=== PATIENT | female | born 1980 | race Caucasian/White ===

== ENCOUNTER → 2024-02-24 | Outpatient (CLI) | payer BC ==
[2024-02-24 07:13] LABS: Basophils # (auto) 0.1 10 ^3/uL (0-0.2); Basophils % (auto) 0.8 % (0.0-2.0); Eosinophils # (auto) 0.4 10 ^3/uL (0-0.8); Eosinophils % (auto) 4.9 % (0.0-7.0); Hematocrit 44.7 % (36.0-46.0); Hemoglobin 15.2 g/dL (12.2-16.2); Lymphocytes # (auto) 2.9 10 ^3/uL (0.4-5.4); Lymphocytes % (auto) 37.1 % (10.0-50.0); Mean Corpuscular Hemoglobin 31.9 pg (28.0-32.0); Mean Corpuscular Hgb Conc. 34.1 g/dL (32.0-36.0); Mean Corpuscular Volume 93.5 fL (80.0-100.0); Monocytes # (auto) 0.5 10 ^3/uL (0-1.3); Monocytes % (auto) 6.8 % (0.0-12.0); Neutrophils # (auto) 3.9 10 ^3/uL (1.6-8.6); Neutrophils % (auto) 50.4 % (37.0-80.0); Platelet Count (auto) 279 10^3/uL (140-450); Red Blood Cells 4.78 10^6/uL (4.0-5.20); Red Cell Distribution Width 12.9 % (11.8-14.3); White Blood Cell 7.8 10^3/uL (4.4-10.8)
[2024-02-24 07:15] LABS: Urine Bacteria FEW /hpf (None Seen); Urine Blood Negative /uL (Negative); Urine Clarity Clear (Clear); Urine Color Light-Yellow (Yellow); Urine Protein, UAD Negative (Negative); Urine Specific Gravity 1.011 (1.001-1.035); Urine Urobilinogen Normal (Negative); Urine WBC <1 /hpf (0 - 5)
[2024-02-24 07:49] LABS: Alanine Aminotransferase 33 U/L (7-40); Albumin 4.4 g/dL (3.2-4.8); Alkaline Phosphatase 61 U/L (46-116); Anion Gap 6 (5-15); Aspartate Aminotransferase 24 U/L (13-40); BUN/Creatinine Ratio 13.3 (10.0-20.0); Bilirubin, Total 0.7 mg/dL (0.2-1.0); Blood Urea Nitrogen 11 mg/dL (9-23); Carbon Dioxide 26 mmol/L (20-30); Chloride 106 mmol/L (98-107); Cholesterol 195 mg/dL (< 200); Glucose 84 mg/dL (74-106); HDL Cholesterol 70 mg/dL (40-59); LDL Cholesterol 116 mg/dL (< 100); Potassium 3.9 mmol/L (3.5-5.1); Sodium 138 mmol/L (136-145); Total Protein 7.2 g/dL (5.7-8.2); Triglycerides 78 mg/dL (< 150)
[2024-02-24 10:43] LABS: Ferritin 70.5 ng/mL (10-291)
[2024-02-24 13:51] LABS: % Iron Saturation 31.8 % (15-50)
== END | disposition home or self-care (01) ==
LOC: LAB 06:49
DX: Z12.11 Encounter for screening for malignant neoplasm of colon (principal); E55.9 Vitamin D deficiency, unspecified; Z98.84 Bariatric surgery status
CPT/HCPCS: 36415; 80053; 80061; 81001; 82306; 82607; 82728; 83036; 83540; 83550; 84443; 85025

== ENCOUNTER 2024-09-25 13:39 | Emergency (ER) | payer BC ==
[~2024-09-25] VITALS: Ht 165.1 cm; Wt 99.0 kg
--- NOTE | 2024-09-25 14:06 | ED.PDOC ---
HPI Comments 44 year old female presents to the ED with a chief complaint of palpitations onset 4 days. Patient states she has been experiencing palpitations with shortness of breath for the past 4 days, noticed worsen today. Patient states smart watch advises HR is elevated. PMHx DM, HTN. Denies chest pain, nausea, vomiting, diarrhea, abdominal pain, dizziness, headache, fever, chills. No other symptoms or modifying factors present at this time. Chief Complaint: Palpitations Time Seen by MD: 13:47 Reviewed Notes: Medications, Allergies Allergies: Coded Allergies: NO KNOWN ALLERGIES (Unverified , 09/25/24) Information Source: Patient Mode of Arrival: Ambulatory Severity: Moderate Timing: Days Duration: Since onset Prehospital treatment: None Onset: At Rest Cardiac Risk Factors: HTN, Diabetes PE Risk Factors: None History of: None Associated Signs and Symptoms: Palpitations Past Medical History PAST MEDICAL HISTORY: DM, HTN Surgical History: Denies all surgeries EMBEDDED FIRMWARE ENGINEER History: No Pertinent EMBEDDED FIRMWARE ENGINEER History Family History Family History: Reviewed,noncontributory to illness, No family hx of Cancer, No family hx of DM, No family hx of Heart linda, No family hx of HTN, No family hx ofKidney linda, No family hx of Liver linda, No family hx of Lung linda, No family hx of Stroke Social History Smoker: Non-Smoker Alcohol: Denies ETOH Use Drugs: Denies Drug Use Lives In: Home Constitutional: denies: chills, diaphoresis, fatigue, fever, malaise, sweats, w eakness, others EENTM: denies: blurred vision, double vision, ear bleeding, ear discharge, ear drainage, ear pain, ear ringing, eye pain, eye redness, hearing loss, mouth pain, mouth swelling, nasal discharge, nose bleeding, nose congestion, nose pain, photophobia, tearing, throat pain, throat swelling, voice changes, others Respiratory: reports: shortness of breath; denies: cough, hemoptysis, orthopnea, SOB at rest, SOB with excertion, stridor, wheezing, others Cardiovascular: reports: palpitations; denies: chest pain, dizzy spells, diaphoresis, Dyspnea on exertion, edema, irregular heart beat, left arm pain, lightheadedness, PND, syncope, others Gastrointestinal: denies: abdomen distended, abdominal pain, blood streaked bowels, constipated, diarrhea, dysphagia, difficulty swallowing, hematemesis, melena, nausea, poor appetite, poor fluid intake, rectal bleeding, rectal pain, vomiting, others Genitourinary: denies: abnormal vagina bleeding, burning, dyspareunia, dysuria, flank pain, frequency, hematuria, incontinence, pain, , vagina discharge, urgency, others Neurological: denies: dizziness, fainting, headache, left sided numbness, left sided weakness, numbness, paresthesia, pre-existing deficit, right sided numbness, right sided weakness, seizure, speech problems, tingling, tremors, weakness, others Musculoskeletal: denies: back pain, gout, joint pain, joint swelling, muscle pain, muscle stiffness, neck pain, others Integumetry: denies: bruises, change in color, change in hair/nails, dryness, laceration, lesions, lumps, rash, wounds, others Allergic/Immunocompromised: denies: Difficulty Healing, Frequent Infections, Hives, Itching, others Hematologic/Lymphatic: denies: anemia, blood clots, easy bleeding, easy bruising, swollen glands, others Endocrine: denies: excessive hunger, excessive sweating, excessive thirst, excessive urination, flushing, intolerance to cold, intolerance to heat, unexplained weight gain, unexplained weight loss, others Psychiatric: denies: anxiety, bipolar disorder, depression, hopeless, panic disorder, schizophrenia, sleepless, suicidal, others All Other Systems: Reviewed and Negative Physical Exam General Appearance: Moderate Distress, Normal HEENT: Normal ENT Inspection, Pharynx Normal, TMs Normal Neck: Full Range of Motion, Non-Tender, Normal, Normal Inspection Respiratory: Chest Non-Tender, Lungs Clear, No Accessory Muscle Use, No Respiratory Distress, Normal Breath Sounds Cardiovascular: No Edema, No JVD, No Murmur, No Gallop, Normal Peripheral Pulses, Regular Rate/Rhythm Breast Exam: Deferred Gastrointestinal: No Organomegaly, Non Tender, No Pulsatile Mass, Normal Bowel Sounds, Soft Genitalia: Deferred Pelvic: Deferred Rectal: Deferred Extremities: No calf tenderness, Normal capillary refill, Normal inspection, Normal range of motion, Non-tender, No pedal edema Musculoskeletal : Apperance: Normal Neurologic: Alert, rapid extractor operator II-XII nml as Tested, No Motor Deficits, Normal Affect, Normal Mood, No Sensory Deficits Cerebellar Function: Normal Reflexes: Normal Skin: Dry, Normal Color, Warm Peripheral Pulses: 3+ Radial (R), 3+ Radial (L) Lymphatic: No Adenopathy Was a procedure done? Was a procedure done?: No CP Differential Dx Differential Diagnosis: A-fib, A-Flutter, Angina, Anxiety / Panic Attack, Atrial Dysrhythmia, Electrolyte Disorder X-Ray, Labs, Meds, VS Vital Signs Date Time Temp Pulse Resp B/P (MAP) Pulse Ox O2 Delivery O2 Flow Rate FiO2 09/25/24 15:14 98.6 80 17 128/83 (98) 99 98.6 09/25/24 14:43 77 09/25/24 13:47 102 09/25/24 13:40 98.2 100 18 119/79 (92) 99 98.2 Lab Test 09/25/24 14:46 09/25/24 13:53 Range/Units Troponin I High Sensitivity < 3 L < 3 L </=34 ng/L White Blood Count 10.3 4.4-10.8 10^3/uL Red Blood Count 4.70 4.0-5.20 10^6/uL Hemoglobin 15.2 12.2-16.2 g/dL Hematocrit 43.9 36.0-46.0 % Mean Corpuscular Volume 93.4 80.0-100.0 fL Mean Corpuscular Hemoglobin 32.3 H 28.0-32.0 pg Mean Corpuscular Hemoglobin Concent 34.6 32.0-36.0 g/dL Red Cell Distribution Width 12.7 11.8-14.3 % Platelet Count 304 140-450 10^3/uL Mean Platelet Volume 8.8 6.9-10.8 fL Neutrophils (%) (Auto) 68.7 37.0-80.0 % Lymphocytes (%) (Auto) 24.1 10.0-50.0 % Monocytes (%) (Auto) 5.4 0.0-12.0 % Eosinophils (%) (Auto) 1.1 0.0-7.0 % Basophils (%) (Auto) 0.7 0.0-2.0 % Neutrophils # (Auto) 7.1 1.6-8.6 10 ^3/uL Lymphocytes # (Auto) 2.5 0.4-5.4 10 ^3/uL Monocytes # (Auto) 0.6 0-1.3 10 ^3/uL Eosinophils # (Auto) 0.1 0-0.8 10 ^3/uL Basophils # (Auto) 0.1 0-0.2 10 ^3/uL Nucleated Red Blood Cells 0.0 % Sodium Level 141 136-145 mmol/L Potassium Level 4.0 3.5-5.1 mmol/L Chloride Level 105 98-107 mmol/L Carbon Dioxide Level 28 20-31 mmol/L Anion Gap 8 5-15 Blood Urea Nitrogen 15 9-23 mg/dL Creatinine 0.89 0.550-1.02 mg/dL Glomerular Filtration Rate Calc 81 >90 mL/min BUN/Creatinine Ratio 16.9 10.0-20.0 Serum Glucose 93 74-106 mg/dL Calcium Level 10.3 8.7-10.4 mg/dL Current Medications Medications (Trade) Dose Ordered Sig/Delmi Route Start Time Stop Time Status Last Admin Aspirin 325 mg ONCE ONCE PO 09/25/24 15:00 09/25/24 15:01 DC 09/25/24 15:30 Lorazepam (Ativan Inj) 1 mg ONCE ONCE IV 09/25/24 15:00 09/25/24 15:01 DC 09/25/24 15:30 Patient alert. Complaining of palpitations. EKG does show tachycardia. Vitals stable. Answering questions. Cardiac marker within normal limits. WBC within normal limits. Hemoglobin within normal limits. Continues to have palpitations. Echocardiogram. Possibly mitral valve disease. Reviewed her history. Explained to the patient. Continue monitoring. Discussed with Dr. Coughlin for follow up appointment. She is chest pain-free. No leg swelling. No shortness a breath. Palpitations resolved. She insists on going home. Heart rate normalized. Was given aspirin. Was given Ativan. Was told to follow up with her primary care physician. Was told to come back if there is any problem. Time of 1ST Reevaluation: 14:17 Reevaluation 1ST: Unchanged Patient Education/Counseling: Diagnosis, Treatment, Prognosis Family Education/Counseling: No Family Present Additional Information The following tests were ordered, and results were reviewed by me: EKG -x3, CBC, CMP, TROP -x3, BMP I discussed treatment and results with medical personnel and: patient Comprehensive systems review obtained and negative except for what is stated in the HPI. Departure 1 Departure Time of Disposition: 14:48 Impression: Primary Impression: Palpitations Additional Impression: Mitral valve disease Disposition: HOME / SELF CARE / HOMELESS Condition: Good Discharged With: Self Critical Care Note Critical Care Time?: No Stability Stability form required: No Heart Score Heart Score: Heart Score Response (Comments) Value History Slightly Suspicious 0 EKG Normal 0 Age 45-64 1 Risk Factors 1 or 2 risk factors 1 Troponin Normal limit 0 Total 2 I personally scribed for CHHAYA PHELPS MD ([email or web address]) on 09/25/24 at 14:06. Electronically submitted by Char Torrez ([email or web address]). I personally scribed for CHHAYA PHELPS MD ([email or web address]) on 09/25/24 at 15:06. Electronically submitted by Char Torrez ([email or web address]). CHHAYA PHELPS MD Sep 25, 2024 14:06
[2024-09-25 14:14] LABS: Basophils # (auto) 0.1 10 ^3/uL (0-0.2); Basophils % (auto) 0.7 % (0.0-2.0); Eosinophils # (auto) 0.1 10 ^3/uL (0-0.8); Eosinophils % (auto) 1.1 % (0.0-7.0); Hematocrit 43.9 % (36.0-46.0); Hemoglobin 15.2 g/dL (12.2-16.2); Lymphocytes # (auto) 2.5 10 ^3/uL (0.4-5.4); Lymphocytes % (auto) 24.1 % (10.0-50.0); Mean Corpuscular Hemoglobin 32.3 pg (28.0-32.0); Mean Corpuscular Hgb Conc. 34.6 g/dL (32.0-36.0); Mean Corpuscular Volume 93.4 fL (80.0-100.0); Monocytes # (auto) 0.6 10 ^3/uL (0-1.3); Monocytes % (auto) 5.4 % (0.0-12.0); Neutrophils # (auto) 7.1 10 ^3/uL (1.6-8.6); Neutrophils % (auto) 68.7 % (37.0-80.0); Platelet Count (auto) 304 10^3/uL (140-450); Red Cell Distribution Width 12.7 % (11.8-14.3); White Blood Cell 10.3 10^3/uL (4.4-10.8)
[2024-09-25 14:26] LABS: Chloride 105 mmol/L (98-107); Sodium 141 mmol/L (136-145)
[2024-09-25 14:27] LABS: Anion Gap 8 (5-15); Calcium 10.3 mg/dL (8.7-10.4); Carbon Dioxide 28 mmol/L (20-31)
[2024-09-25 14:32] LABS: BUN/Creatinine Ratio 16.9 (10.0-20.0); Blood Urea Nitrogen 15 mg/dL (9-23); Glucose 93 mg/dL (74-106)
--- NOTE | 2024-09-25 14:44 | ECG ---
[facility] Test Date: 2024-09-25 Test Time: 14:43:05 Pat Name: VICKY JONES Department: ED Room: Gender: F Director Audience Marketing: ADRIAN : 1980 Requested By: CHHAYA PHELPS Order Number: [id number] Reading MD: Measurements Intervals [place] Rate: 77 P: 13 CA: 137 QRS: 1 QRSD: 88 T: 15 QT: 341 QTc: 386 Interpretive Statements Sinus rhythm Low voltage, precordial leads Left ventricular hypertrophy Baseline wander in lead(s) III,aVF,V2,V3 Please click the below link to view image of tracing.
[2024-09-25 15:14] VITALS: BP 128/83; PULSE 80; RESP 17; TEMP 98.6; O2SAT 99
[2024-09-25] MEDS: ASPirin 325 MG TAB PO ONE (15:30)
[2024-09-25] MEDS: LORazepam 2MG/ML-1ML VIAL IV ONE (15:30)
--- NOTE | 2024-09-26 08:51 | ECG ---
[facility] Test Date: 2024-09-25 Test Time: 13:47:32 Pat Name: VICKY JONES Department: ER Room: Gender: F Admissions Supervisor: NICOLÁS : 1980 Requested By: CHHAYA PHELPS Order Number: [id number] Reading MD: Measurements Intervals [place] Rate: 102 P: 20 HI: 114 QRS: -1 QRSD: 82 T: -12 QT: 328 QTc: 428 Interpretive Statements Sinus tachycardia Probable left atrial enlargement Left ventricular hypertrophy Inferior infarct, old Baseline wander in lead(s) V2,V3,V4,V5 Please click the below link to view image of tracing.
== END 2024-09-25 17:12 | disposition home or self-care (01) ==
LOC: ER 13:39
DX: I05.9 Rheumatic mitral valve disease, unspecified (principal); R00.2 Palpitations; I10 Essential (primary) hypertension; E11.9 Type 2 diabetes mellitus without complications
CPT/HCPCS: 36415; 80048; 84484; 85025; 93005; 96374; 99284; J2060

== ENCOUNTER 2024-09-25 17:41 | Emergency (ER) | payer BC ==
[~2024-09-25] VITALS: Ht 165.1 cm; Wt 99.0 kg
--- NOTE | 2024-09-25 18:00 | ED.PDOC ---
HPI Comments 44-year-old female with past medical history pertinent for bipolar disorder, presents to ED for palpitations x4 days, associated with shortness of breath. Patient states that she was seen here a few hours ago and discharged and was advised to return to the ED for any worsening symptoms. She states that while she was in the ED, her heart rate had come down, however her Apple watch showed again that she had a heart rate in the 150s, prompting her to come back to the ED. She denies any chest pain, headache, nausea, vomiting, fever, chills, abdominal pain. Patient denies any recent illness. No alleviating or aggravating factors. Chief Complaint: General Weakness Time Seen by MD: 17:43 Primary Care Provider: unknown Reviewed Notes: Nurses Notes, Medications, Allergies Allergies: Coded Allergies: NO KNOWN ALLERGIES (Unverified , 09/25/24) Mode of Arrival: Ambulatory Past Medical History PAST MEDICAL HISTORY: DM, HTN Surgical History: Denies all surgeries TEST DESIGN ENGINEER History: No Pertinent TEST DESIGN ENGINEER History Family History Family History: Reviewed,noncontributory to illness, No family hx of Cancer, No family hx of DM, No family hx of Heart linda, No family hx of HTN, No family hx ofKidney linda, No family hx of Liver linda, No family hx of Lung linda, No family hx of Stroke Social History Smoker: Non-Smoker Alcohol: Denies ETOH Use Drugs: Denies Drug Use Lives In: Home Constitutional: denies: chills, diaphoresis, fatigue, fever, malaise, sweats, weakness, others EENTM: denies: blurred vision, double vision, ear bleeding, ear discharge, ear drainage, ear pain, ear ringing, eye pain, eye redness, hearing loss, mouth pa in, mouth swelling, nasal discharge, nose bleeding, nose congestion, nose pain, photophobia, tearing, throat pain, throat swelling, voice changes, others Respiratory: reports: shortness of breath; denies: cough, hemoptysis, orthopnea, SOB at rest, SOB with excertion, stridor, wheezing, others Cardiovascular: reports: palpitations; denies: chest pain, dizzy spells, diaphoresis, Dyspnea on exertion, edema, irregular heart beat, left arm pain, lightheadedness, PND, syncope, others Gastrointestinal: denies: abdomen distended, abdominal pain, blood streaked bowels, constipated, diarrhea, dysphagia, difficulty swallowing, hematemesis, melena, nausea, poor appetite, poor fluid intake, rectal bleeding, rectal pain, vomiting, others Genitourinary: denies: abnormal vagina bleeding, burning, dyspareunia, dysuria, flank pain, frequency, hematuria, incontinence, pain, , vagina discharge , urgency, others Neurological: denies: dizziness, fainting, headache, left sided numbness, left sided weakness, numbness, paresthesia, pre-existing deficit, right sided numbness, right sided weakness, seizure, speech problems, tingling, tremors, weakness, others Musculoskeletal: denies: back pain, gout, joint pain, joint swelling, muscle pain, muscle stiffness, neck pain, others Integumetry: denies: bruises, change in color, change in hair/nails, dryness, laceration, lesions, lumps, rash, wounds, others Allergic/Immunocompromised: denies: Difficulty Healing, Frequent Infections, Hives, Itching, others Hematologic/Lymphatic: denies: anemia, blood clots, easy bleeding, easy bruising, swollen glands, others Endocrine: denies: excessive hunger, excessive sweating, excessive thirst, excessive urination, flushing, intolerance to cold, intolerance to heat, unexplained weight gain, unexplained weight loss, others Psychiatric: denies: anxiety, bipolar disorder, depression, hopeless, panic di sorder, schizophrenia, sleepless, suicidal, others All Other Systems: Reviewed and Negative Physical Exam General Appearance: No Apparent Distress, Normal HEENT: Normal ENT Inspection, Pharynx Normal, TMs Normal Neck: Full Range of Motion, Non-Tender, Normal, Normal Inspection Respiratory: Chest Non-Tender, Lungs Clear, No Accessory Muscle Use, No Respiratory Distress, Normal Breath Sounds Cardiovascular: No Edema, No JVD, No Murmur, No Gallop, Normal Peripheral Pulses, Regular Rate/Rhythm Breast Exam: Deferred Gastrointestinal: No Organomegaly, Non Tender, No Pulsatile Mass, Normal Bowel Sounds, Soft Genitalia: Deferred Pelvic: Deferred Rectal: Deferred Extremities: No calf tenderness, Normal capillary refill, Normal inspection, Normal range of motion, Non-tender, No pedal edema Musculoskeletal : Apperance: Normal Neurologic: Alert, unix manager II-XII nml as Tested, No Motor Deficits, Normal Affect, Normal Mood, No Sensory Deficits Cerebellar Function: Normal Reflexes: Normal Skin: Dry, Normal Color, Warm Lymphatic: No Adenopathy EKG EKG : Pulse Rate (adult): 111 [place]: Normal Cardiac Rhythm: ST Block: None Hypertrophy: None ST: Normal Was a procedure done? Was a procedure done?: No CP Differential Dx Differential Diagnosis: A-fib, A-Flutter, Angina, Anxiety / Panic Attack, Electrolyte Disorder, Heart Failure, MS, Sinus Tachycardia, Other (Thyroiditis) X-Ray, Labs, Meds, VS Vital Signs Date Time Temp Pulse Resp B/P (MAP) Pulse Ox O2 Delivery O2 Flow Rate FiO2 09/25/24 18:00 111 09/25/24 17:48 111 09/25/24 17:47 97.9 108 18 143/85 (104) 98 97.9 Lab Test 09/25/24 18:13 09/25/24 17:55 Range/Units Thyroid Stimulating Hormone (TSH) 3.83 0.55-4.78 uIU/mL Free Thyroxine (T4) Calculated 1.02 0.89-1.76 ng/dL Free Triiodothyronine (T3) pg/mL 3.17 2.3-4.2 pg/mL Urine Color Light-yellow Yellow Urine Clarity Clear Clear Urine pH 5.5 5.0-9.0 Urine Specific [place] 1.020 1.001-1.035 Urine Protein Negative Negative Urine Ketones Negative Negative Urine Blood Negative Negative /uL Urine Nitrite Negative Negative Urine Bilirubin Negative Negative Urine Urobilinogen Normal Negative mg/dL Urine Leukocyte Esterase Negative Negative /uL Urine RBC 1 0 - 4 /hpf Urine Microscopic WBC 1 0-5 /HPF Urine Squamous Epithelial Cells Few <5 /hpf Urine Bacteria None seen None Seen /hpf Urine Glucose Normal Normal mg/dL Urine Test Negative Negative X-Ray, Labs, Meds, VS Comment CXR IMPRESSION: No evidence of acute disease. MDM: Patient with history as above presented with palpitations. History obtained from patient. Patient was nontoxic, stable, afebrile, ambulatory, no acute distress. Exam as above. Labs reviewed. Patient's labs from her visit from earlier today were reviewed. There was no leukocytosis. No anemia. BMP did not show any electrolyte abnormalities. Normal renal function. I have also added anything thyroid function which were within normal limits. Urinalysis was negative for acute infection. Urine test was negative. EKG was reviewed by me. Sinus tachycardia at 111 beats per minute. No hypertrophy, no AV blocks, no ST- T wave abnormalities. Independently reviewed imaging. Chest x-ray did not show acute cardiopulmonary disease. Reviewed external records. All findings were discussed with the patient. Differential diagnosis considered. Overall presentation is consistent with Nonspecific palpitations. Low suspicion for ACS, pneumonia, thyroiditis. Patient reported improved symptoms while waiting in the waiting room. Patient was also ordered a bolus of normal saline in the ED. Patient was advised that I have placed at a PCP referral order for re-evaluation. Patient was reevaluated and vital signs were reviewed. Consideration was given for admission, but the patient was stable for outpatient management. Disposition: Discussed the need to follow up diagnostics, including incidental findings. Discharged the patient with instructions to obtain outpatient follow up in 1-2 days of today's symptoms and findings, with strict return precautions if patient develops new or worsening symptoms. This medical document was created using the Neronote dictation system. Although this document has been carefully reviewed, there may still be some phonetic and typographical errors, which are due to imperfections of the software program, and do not reflect any compromise in the patient's medical care. Time of 1ST Reevaluation: 19:11 Reevaluation 1ST: Improved Patient Education/Counseling: Diagnosis, Treatment, Prognosis, Need For Follow Up Family Education/Counseling: No Family Present Departure 1 Departure Time of Disposition: 19:15 Impression: Primary Impression: Palpitations Disposition: 01 HOME / SELF CARE / HOMELESS Condition: Fair Critical Care Note Critical Care Time?: No Stability Stability form required: No Heart Score Heart Score: Heart Score Response (Comments) Value History Slightly Suspicious 0 EKG Normal 0 Age 45-64 1 Risk Factors 1 or 2 risk factors 1 Troponin Normal limit 0 Total 2 FORTINO YOUNG Sep 25, 2024 18:00
[2024-09-25 18:35] LABS: Urine Bacteria None Seen /hpf (None Seen)
--- NOTE | 2024-09-25 18:42 | DVH ---
CHEST RADIOGRAPH Indication: Palpitations Technique: Frontal and lateral view of the chest was obtained Comparison: None FINDINGS: Lines and Tubes: None Lungs: Clear Pleura: No effusion. No pneumothorax. Cardiomediastinal contours: Unremarkable Bones: Unremarkable IMPRESSION: No evidence of acute disease.
[2024-09-25 18:52] LABS: Urine Blood Negative /uL (Negative); Urine Clarity Clear (Clear); Urine Color Light-Yellow (Yellow); Urine Protein, UAD Negative (Negative); Urine Squamous Epithelial Cell FEW /hpf (<5); Urine Urobilinogen Normal (Negative); Urine WBC 1 /HPF (0-5); Urine pH 5.5 (5.0-9.0)
[2024-09-25 18:53] LABS: Free T3 3.17 pg/mL (2.3-4.2)
[2024-09-25 18:54] LABS: Free T4 (Free Thyroxine) 1.02 ng/dL (0.89-1.76)
[2024-09-25 20:18] VITALS: BP 133/85; TEMP 98
[2024-09-25 20:19] VITALS: PULSE 100; RESP 18; O2SAT 98
[2024-09-25] MEDS: SODIUM CHLORIDE 0.9% 1,000 ML IV ONE (20:26)
--- NOTE | 2024-09-26 08:29 | ECG ---
[facility] Test Date: 2024-09-25 Test Time: 17:48:32 Pat Name: VICKY JONES Department: ER Room: Gender: F Financial Data Analyst: GP : 1980 Requested By: FORTINO YOUNG Order Number: [id number] Reading MD: Lamonte George Measurements Intervals [place] Rate: 111 P: 25 NM: 125 QRS: 3 QRSD: 92 T: -8 QT: 311 QTc: 423 Interpretive Statements Sinus tachycardia Probable left atrial enlargement Low voltage, precordial leads Left ventricular hypertrophy Borderline T abnormalities, inferior leads Electronically Signed On 09-28-2024 13:59:05 PDT by Lamonte George Please click the below link to view image of tracing.
== END 2024-09-25 20:24 | disposition home or self-care (01) ==
LOC: ER 17:41
DX: R00.2 Palpitations (principal); R06.02 Shortness of breath; Z32.02 Encounter for pregnancy test, result negative
CPT/HCPCS: 36415; 71046; 81001; 81025; 84439; 84443; 84481; 93005

== ENCOUNTER 2024-12-26 06:47 | Outpatient (CLI) | payer BC ==
[2024-12-26 07:29] LABS: Urine Blood Negative /uL (Negative); Urine Clarity Clear (Clear); Urine Color Light-Yellow (Yellow); Urine Protein, UAD Negative (Negative); Urine Specific Gravity 1.018 (1.001-1.035); Urine Urobilinogen Normal (Negative); Urine pH 5.5 (5.0-9.0)
[2024-12-26 07:45] LABS: Basophils # (auto) 0 10 ^3/uL (0-0.2); Basophils % (auto) 0.6 % (0.0-2.0); Eosinophils # (auto) 0.1 10 ^3/uL (0-0.8); Eosinophils % (auto) 1.7 % (0.0-7.0); Hematocrit 40.6 % (36.0-46.0); Hemoglobin 14.2 g/dL (12.2-16.2); Lymphocytes # (auto) 2.3 10 ^3/uL (0.4-5.4); Lymphocytes % (auto) 38.8 % (10.0-50.0); Mean Corpuscular Hemoglobin 32.1 pg (28.0-32.0); Mean Corpuscular Hgb Conc. 34.9 g/dL (32.0-36.0); Monocytes # (auto) 0.4 10 ^3/uL (0-1.3); Monocytes % (auto) 7.6 % (0.0-12.0); Neutrophils % (auto) 51.3 % (37.0-80.0); Platelet Count (auto) 246 10^3/uL (140-450); Red Blood Cells 4.42 10^6/uL (4.0-5.20); Red Cell Distribution Width 12.7 % (11.8-14.3); White Blood Cell 5.9 10^3/uL (4.4-10.8)
[2024-12-26 07:52] LABS: Alanine Aminotransferase 16 U/L (7-40); Albumin 4.4 g/dL (3.2-4.8); Alkaline Phosphatase 60 U/L (46-116); Anion Gap 9 (5-15); Aspartate Aminotransferase 21 U/L (<34); BUN/Creatinine Ratio 14.1 (10.0-20.0); Bilirubin, Total 0.8 mg/dL (0.2-1.0); Blood Urea Nitrogen 12 mg/dL (9-23); Calcium 9.8 mg/dL (8.7-10.4); Carbon Dioxide 27 mmol/L (20-31); Cholesterol 187 mg/dL (< 200); Glucose 87 mg/dL (74-106); HDL Cholesterol 57 mg/dL (40-59); Potassium 4.2 mmol/L (3.5-5.1); Total Protein 6.9 g/dL (5.7-8.2); Triglycerides 108 mg/dL (< 150)
[2024-12-26 08:02] LABS: Chloride 110 mmol/L (98-107); LDL Cholesterol 129 mg/dL (< 100); Sodium 146 mmol/L (136-145)
== END 2024-12-26 17:00 | disposition home or self-care (01) ==
LOC: LAB 06:47
PROVIDERS: ATTEND Nurse Practitioner Family
DX: E78.9 Disorder of lipoprotein metabolism, unspecified (principal); Z12.11 Encounter for screening for malignant neoplasm of colon; R73.9 Hyperglycemia, unspecified; Z00.01 Encounter for general adult medical examination with abnormal findings
CPT/HCPCS: 36415; 80053; 80061; 81003; 82306; 83036; 84443; 85025

== ENCOUNTER 2025-07-03 06:48 | Outpatient (CLI) | payer BC ==
[2025-07-03 07:11] LABS: Hematocrit 41.5 % (36.0-46.0); Hemoglobin 14.5 g/dL (12.2-16.2); Mean Corpuscular Hemoglobin 32.1 pg (28.0-32.0); Mean Corpuscular Volume 92.1 fL (80.0-100.0); Nucleated Red Blood Cells % 0.0 %
[2025-07-03 07:33] LABS: Alanine Aminotransferase 20 U/L (7-40); Albumin 4.2 g/dL (3.2-4.8); Alkaline Phosphatase 67 U/L (46-116); Anion Gap 8 (5-15); BUN/Creatinine Ratio 9.4 (10.0-20.0); Calcium 9.4 mg/dL (8.7-10.4); Carbon Dioxide 27 mmol/L (20-31); Glucose 83 mg/dL (74-106); Potassium 4.3 mmol/L (3.5-5.1); Sodium 143 mmol/L (136-145); Total Protein 6.9 g/dL (5.7-8.2); Triglycerides 101 mg/dL (< 150)
[2025-07-03 07:34] LABS: Bilirubin, Total 0.6 mg/dL (0.2-1.0); Cholesterol 191 mg/dL (< 200); Free T3 3.92 pg/mL (2.3-4.2); HDL Cholesterol 54 mg/dL (40-59)
[2025-07-03 07:35] LABS: Follicle Stimulating Hormone 7.7 IU/L (SEE BELOW); Free T4 (Free Thyroxine) 0.97 ng/dL (0.89-1.76)
[2025-07-03 07:41] LABS: Blood Urea Nitrogen 8 mg/dL (9-23); Chloride 108 mmol/L (98-107)
== END 2025-07-03 17:00 | disposition home or self-care (01) ==
LOC: LAB 06:48
PROVIDERS: ATTEND Nurse Practitioner Family
DX: N95.1 Menopausal and female climacteric states (principal); E78.5 Hyperlipidemia, unspecified; E55.9 Vitamin D deficiency, unspecified; I49.9 Cardiac arrhythmia, unspecified; R00.2 Palpitations
CPT/HCPCS: 36415; 80053; 80061; 82670; 83001; 83002; 83036; 84403; 84439; 84443; 84481; 85025